=== PATIENT | female | born 1945 | race Caucasian/White ===

== ENCOUNTER → 2017-01-01 | Day surgery (SDC) | payer OTHER ==
[~2017-01-01] MED LIST: ACET-1256 PO; ASPCH81X PO; ATV/1 PO; BTP80 PO; CALC500C50 PO; HYDR12.55 PO; HYT/2 PO; LEVO75TA5 PO; LISI40TA PO; LPT20 PO; MULT-506 PO; NITR0.4S UT; PRM625 PV; PROPOFOL IV EMULSION 10 MG/ML 20 ML VIAL IV ONE; WARF5TAB90 PO
== END | disposition home or self-care (01) ==
LOC: C.CATH 06:30
PROVIDERS: ATTEND Internal Medicine Cardiovascular Disease
DX: R94.31 Abnormal electrocardiogram [ECG] [EKG] (principal); I48.0 Paroxysmal atrial fibrillation; I25.10 Atherosclerotic heart disease of native coronary artery without angina pectoris; I10 Essential (primary) hypertension; E78.5 Hyperlipidemia, unspecified; Z79.01 Long term (current) use of anticoagulants; Z79.82 Long term (current) use of aspirin; Z79.899 Other long term (current) drug therapy

== ENCOUNTER 2021-01-02 10:50 | Inpatient (IN) ==
[2021-01-02] MEDS ORDERED: METOPROLOL TARTRATE 1 MG/ML VIAL IV PRN (11:25)
--- NOTE | 2021-01-02 11:25 | Emergency Department Note ---
ED Visit Note This patient was seen in concert with Dr. Gates and we discussed and agreed upon the history, physical, assessment and plan. See attending's note for details. Resident Activity Tracking Resident Involvement: Resident Care Provided Care Provided: Adult ED
--- NOTE | 2021-01-02 11:34 | XRay Report ---
XR chest 1V portable HISTORY: 75 years-old Female Dysrhythmia acute atypical chest pain with atrial fibrillation and weak ness COMPARISON: 04/24/2016 TECHNIQUE: AP view of the chest FINDINGS: Mild cardiomegaly. Calcified plaque the thoracic aorta. Mild chronic interstitial coarsening. No pneu mothorax, pleural effusion, airspace consolidation or overt pulmonary edema. Degenerative changes of the shoulders and spine. IMPRESSION: No acute process. ACT 112: Negative or not required by law. The above report was generated using voice recognition software. It may contain grammatical, syntax o r spelling errors. Electronically signed by: Lucas Perez M.D. 01/02/2021 11:33 AM
[2021-01-02 11:41] LABS: Basophils # (auto) 0.04 K/uL (0-0.2); Basophils % (auto) 0.6 %; Eosinophils # (auto) 0.21 K/uL (0-0.5); Eosinophils % (auto) 2.9 %; Hematocrit (blood only) 43.3 % (37-47); Hemoglobin 14.8 g/dL (12.0-16.0); Immature Granulocytes # (auto) 0.02 K/uL (0.00-0.02); Immature Granulocytes % (auto) 0.3 %; Lymphocytes # (auto) 1.73 K/uL (1.2-3.4); Lymphocytes % (auto) 24.2 %; Mean Corpuscular Hemoglobin 30.6 pg (25-34); Mean Corpuscular Hgb Conc 34.2 g/dL (32-36); Mean Corpuscular Volume 89.6 fL (80-100); Mean Platelet Volume 10.6 fL (7.4-10.4); Monocytes # (auto) 0.68 K/uL (0.11-0.59); Monocytes % (auto) 9.5 %; Neutrophils # (auto) 4.46 K/uL (1.4-6.5); Neutrophils % (auto) 62.5 %; Platelet Count 235 K/uL (130-400); RDW Coefficient of Variation 13.7 % (11.5-14.5); RDW Standard Deviation 44.9 fL (36.4-46.3); Red Blood Count 4.83 M/uL (4.2-5.4); White Blood Count 7.14 K/uL (4.8-10.8)
[2021-01-02 11:52] LABS: INR 2.2 (0.9-1.1); Partial Thromboplastin Ratio 1.4; Partial Thromboplastin Time 36.2 Seconds (21.0-31.0); Prothrombin Time 21.1 Seconds (9.0-12.0)
[2021-01-02 11:57] LABS: Alanine Aminotransferase 19 U/L (12-78); Albumin Level 3.5 gm/dl (3.4-5.0); Aspartate Aminotransferase 16 U/L (15-37); BUN Creatinine Ratio 24.4 (10-20); Blood Urea Nitrogen 14 mg/dl (7-18); Calcium 9.2 mg/dl (8.5-10.1); Carbon Dioxide 29 mmol/L (21-32); Chloride 100 mmol/L (98-107); Creatinine Clr Calc Pharmacy 84.3 ml/min; Est GFR (African American) 104.2 ml/min; Est GFR (Non-African American) 89.9 ml/min; Glucose 108 mg/dl (70-99); Potassium 3.5 mmol/L (3.5-5.1); Sodium 134 mmol/L (136-145)
[2021-01-02 12:08] LABS: Alkaline Phosphatase 72 U/L (45-117); Bilirubin,Total 1.5 mg/dl (0.2-1); Globulin 3.6 gm/dl (2.5-4.0); Total Protein 7.1 gm/dl (6.4-8.2); Troponin I < 0.015 ng/ml (0-0.045)
[2021-01-02 12:30] LABS: T4 Free Thyroxine 1.29 ng/dl (0.8-1.6)
[2021-01-02] MEDS ORDERED: STAT IV Infusion **Titration per Protocol STA (12:32)
[2021-01-02] MEDS ORDERED: dilTIAZem HCl 5 MG/ML 5 ML VIAL IV STA (12:34)
[2021-01-02] MEDS ORDERED: SODIUM CHLORIDE 0.9% 1000ML 1,000 ML IV SCH (12:45)
--- NOTE | 2021-01-02 12:45 | Emergency Department Note ---
Impression & Plan Atrial fibrillation with rapid ventricular response, Palpitations ED Provider Note Provider: Javier Gates MD DATE OF SERVICE: 01/02/2021 CHIEF COMPLAINT: afib HISTORY OF PRESENT ILLNESS: Patient is a 75-year-old female past medical history of thyroiditis, GERD, atrial fibrillation on sotalol and Coumadin presenting here today referred from the outpatient cardiology clinic for A. fib. Patient has a history but onset last night around 4 AM after using the bathroom. Patient denies significant chest pain but reports shortness of breath with exertion and palpitation sensation. Denies any lightheadedness or syncope. Denies any trauma. Patient does states she is recovered from an rash on her arm with some prednisone and doxycycline last week and had little diarrhea. This is resolved. Denies any significant abdominal pain. Patient did have breakfast this morning around 8 AM. Patient has a history of electrocardioversion in the past and follows with Dr. Humphrey. REVIEW OF SYSTEMS: A total of 10 review of systems was obtained and negative except as stated above in the HPI. PAST MEDICAL HISTORY: As noted above MEDICATIONS: Reviewed home medication list includes sotalol as well as warfarin SOCIAL HISTORY: lives at home PHYSICAL EXAM: GENERAL: alert and oriented in no acute distress on stretcher Head: normocephalic and atraumatic EYES: No injection, discharge or icterus. NECK: Trachea midline. LUNGS: Airway patent. No retractions. Breath sounds clear HEART: Irregularly irregular rate and rhythm. No chest wall tenderness ABDOMEN: Soft and non-tender, without guarding or rebound. SKIN: Acyanotic, warm, dry, without rashes EXTREMITIES: Without swelling, tenderness or deformity NEUROLOGICAL: No focal deficits. No aphasia. No facial droop or slurred speech. EK bpm atrial fibrillation with rapid ventricular response. Some lateral ST flattening noted without acute ST segment elevation. QTc 487. CONTINUOUS CARDIAC MONITORING: was ordered and showed a heart rate of 130s-70s bpm in atrial fibrillation Patient's laboratory studies and imaging reviewed. Differential includes Premature contractions, electrolyte abnormality, cardiac dysrhythmia, thyroid dysfunction, pulmonary embolism, infection, gastrointestinal, as well as other pathologies. IMPRESSION/MEDICAL DECISION MAKING: History of A. fib maintained on sotalol and Coumadin. Complains of some shortness of breath mainly with exertion and palpitation sensation. EKG question some lateral ST depression but negative troponin here. Denies chest pain. Therapeutic anticoagulation. Question if possibly due to recent steroids and antibiotics with some diarrhea over the weekend for a rash in her arm contributed but just started overnight. Given some Toprol here 1 dose without significant rate control improvement but some decrease in her blood pressure. Discussed with Dr. Toro of cardiology recommended some IV fluids and starting a diltiazem drip after bolus. Inpatient hospitalist team was contacted for further care of the patient with A. fib RVR will need medical optimization and when able to tolerate sedation possible electrical cardioversion. No severe electrolyte abnormalities at this time noted such as hypokalemia or hypomagnesemia may be provoking. Patient denies acute infectious symptoms. Covid test was negative. Patient's heart rate improved but maintained atrial fibrillation. DIAGNOSIS: Atrial fibrillation with rapid ventricular response DISPOSITION: Hospitalist will evaluate patient was in agreement with the plan. Critical Care I have personally spent 31 minutes of critical care time in the direct management of this patient. This includes bedside care, interpretation of diagnostic studies, and testing, discussion with consultants, patient, and family members, and other required patient management activities. These 31 minutes is in excess of all separately billable procedures. Past Med/Surg History Medical History Afib Coronary artery disease Dyslipidemia Hypertension Hypothyroid Osteoporosis Social History Smoking Status: Never smoker Hx Alcohol Use: No Hx Substance Use: No Beliefs That Will Affect Care: None Current Living Situation: Spouse Feels Safe at Home: Yes Assistive Devices: None Allergies Allergies Allergy/AdvReac Type Severity Reaction Status Date / Time No Known Allergies Allergy Verified 03/27/20 07:01 Home Meds Home Medications Medication Instructions Recorded Confirmed Multivitamin 1 tab PO DAILY #0 09/15/08 01/02/21 ASPIRIN (ASPIRIN CHEWABLE) 81 mg PO HS #0 tab 04/23/12 01/02/21 CALCIUM CARBONATE (ANTACID) (TUMS) 500 mg PO PRN #0 04/28/13 01/02/21 LISINOPRIL (ZESTRIL) 40 mg PO QAM #0 tab 04/28/13 01/02/21 NITROGLYCERIN (NITROSTAT) 0.4 mg UT PRN #0 btl 04/28/13 01/02/21 LORAZEPAM (ATIVAN) 1 mg PO BID PRN #0 tab 04/24/16 01/02/21 Acetaminophen (Tylenol) 2 tab PO Q6 PRN 2 Days #20 tab 01/01/17 01/02/21 HYDROCHLOROTHIAZIDE 1 tab PO DAILY 30 Days #0 tab 01/01/17 01/02/21 WARFARIN SODIUM (COUMADIN) 1 tab PO DAILY all other days 90 01/01/17 01/02/21 Days #0 tab Sotalol HCl 120 mg PO BID 03/27/20 01/02/21 amlodipine 2.5 mg DAILY 03/27/20 01/02/21 diclofenac sodium 2 g TOPICAL QID 03/27/20 01/02/21 isosorbide mononitrate 30 mg PO DAILY 03/27/20 01/02/21 levothyroxine 88 mcg PO DAILY 03/27/20 01/02/21 rosuvastatin 5 mg PO Q OTHER DAY 03/27/20 01/02/21 triamcinolone acetonide 1 applic TOPICAL BID 03/27/20 01/02/21 Results & Data (ED) Vital Signs Vital Signs - 24 hr 01/02/21 10:54 01/02/21 11:10 01/02/21 11:30 Temperature 36.4 C L Temperature Source Oral Pulse Rate 130 H 137 H 130 H Pulse Rate [Right] Pulse Rate from SpO2 Sensor Pulse Rhythm [Right] Pulse Strength [Right] Respiratory Rate 20 17 15 Respiratory Effort / Characteristics Non-Labored Respiratory Depth Normal Respiratory Pattern Blood Pressure 138/63 Blood Pressure [Left Arm] Blood Pressure Mean 88 Blood Pressure Mean [Left Arm] Blood Pressure Position [Left Arm] Pulse Oximetry 98 Oxygen Delivery Method Room Air Sepsis Recent Fever Within 48 Hours No Sepsis New/Unexplained Change in Mental Status N/A Sepsis Action Taken by Nursing No Action Required 01/02/21 11:44 01/02/21 11:53 01/02/21 12:00 Temperature Temperature Source Pulse Rate 131 H 123 H Pulse Rate [Right] Pulse Rate from SpO2 Sensor 116 H Pulse Rhythm [Right] Pulse Strength [Right] Respiratory Rate 19 Respiratory Effort / Characteristics Respiratory Depth Respiratory Pattern Blood Pressure 102/72 98/81 L Blood Pressure [Left Arm] Blood Pressure Mean 86 Blood Pressure Mean [Left Arm] Blood Pressure Position [Left Arm] Pulse Oximetry 96 Oxygen Delivery Method Room Air Sepsis Recent Fever Within 48 Hours Sepsis New/Unexplained Change in Mental Status Sepsis Action Taken by Nursing 01/02/21 12:30 01/02/21 12:45 01/02/21 13:00 Temperature Temperature Source Pulse Rate 114 H 80 Pulse Rate [Right] 109 H Pulse Rate from SpO2 Sensor 108 H 83 Pulse Rhythm [Right] Regular Pulse Strength [Right] Normal Respiratory Rate 21 18 22 Respiratory Effort / Characteristics Non-Labored Respiratory Depth Normal Respiratory Pattern Regular Blood Pressure 90/69 L 105/65 Blood Pressure [Left Arm] 105/75 Blood Pressure Mean 76 78 Blood Pressure Mean [Left Arm] 85 Blood Pressure Position [Left Arm] Lying Pulse Oximetry 96 97 94 Oxygen Delivery Method Room Air Sepsis Recent Fever Within 48 Hours Sepsis New/Unexplained Change in Mental Status Sepsis Action Taken by Nursing 01/02/21 13:30 01/02/21 14:00 01/02/21 14:08 Temperature Temperature Source Pulse Rate 80 77 Pulse Rate [Right] Pulse Rate from SpO2 Sensor 81 80 Pulse Rhythm [Right] Pulse Strength [Right] Respiratory Rate 17 17 Respiratory Effort / Characteristics Respiratory Depth Respiratory Pattern Blood Pressure 121/74 127/88 Blood Pressure [Left Arm] Blood Pressure Mean 89 101 Blood Pressure Mean [Left Arm] Blood Pressure Position [Left Arm] Pulse Oximetry 97 98 Oxygen Delivery Method Room Air Sepsis Recent Fever Within 48 Hours Sepsis New/Unexplained Change in Mental Status Sepsis Action Taken by Nursing Laboratory Data Result diagrams: 01/02/21 11:35 01/02/21 11:35 Lab Results 01/02/21 01/02/21 01/02/21 Range/Units 11:35 11:35 11:35 WBC 7.14 (4.8-10.8) K/uL RBC 4.83 (4.2-5.4) M/uL Hgb 14.8 (12.0-16.0) g/dL Hct 43.3 (37-47) % MCV 89.6 (80-100) fL MCH 30.6 (25-34) pg MCHC 34.2 (32-36) g/dL RDW Std Deviation 44.9 (36.4-46.3) fL RDW Coeff of Henri 13.7 (11.5-14.5) % Plt Count 235 (130-400) K/uL MPV 10.6 H (7.4-10.4) fL Immature Gran % (Auto) 0.3 % Neut % (Auto) 62.5 % Lymph % (Auto) 24.2 % [place] % (Auto) 9.5 % Eos % (Auto) 2.9 % Baso % (Auto) 0.6 % Neut # (Auto) 4.46 (1.4-6.5) K/uL Lymph # (Auto) 1.73 (1.2-3.4) K/uL [place] # (Auto) 0.68 H (0.11-0.59) K/uL Eos # (Auto) 0.21 (0-0.5) K/uL Baso # (Auto) 0.04 (0-0.2) K/uL Immature Gran # (Auto) 0.02 (0.00-0.02) K/uL PT 21.1 H (9.0-12.0) Seconds INR 2.2 H (0.9-1.1) APTT 36.2 H (21.0-31.0) Seconds PTT Ratio 1.4 Sodium 134 L (136-145) mmol/L Potassium 3.5 (3.5-5.1) mmol/L Chloride 100 (98-107) mmol/L Carbon Dioxide 29 (21-32) mmol/L Anion Gap 5.0 (3-11) BUN 14 (7-18) mg/dl Creatinine 0.56 L (0.6-1.2) mg/dl Est Cr Clr Drug Dosing 84.3 ml/min Est GFR ( Amer) 104.2 ml/min Est GFR (Non-Af Amer) 89.9 ml/min BUN/Creatinine Ratio 24.4 H (10-20) Glucose 108 H (70-99) mg/dl Calcium 9.2 (8.5-10.1) mg/dl Magnesium 2.0 (1.8-2.4) mg/dl Total Bilirubin 1.5 H (0.2-1) mg/dl AST 16 (15-37) U/L ALT 19 (12-78) U/L Alkaline Phosphatase 72 (45-117) U/L Troponin I < 0.015 (0-0.045) ng/ml Total Protein 7.1 (6.4-8.2) gm/dl Albumin 3.5 (3.4-5.0) gm/dl Globulin 3.6 (2.5-4.0) gm/dl Albumin/Globulin Ratio 1.0 (0.9-2) TSH 5.760 H (0.300-4.500) uIu/ml Free T4 1.29 (0.8-1.6) ng/dl COVID-19 Eval Order SARS-CoV-2 (PCR) (Negative) 01/02/21 01/02/21 Range/Units 12:06 12:06 WBC (4.8-10.8) K/uL RBC (4.2-5.4) M/uL Hgb (12.0-16.0) g/dL Hct (37-47) % MCV (80-100) fL MCH (25-34) pg MCHC (32-36) g/dL RDW Std Deviation (36.4-46.3) fL RDW Coeff of Henri (11.5-14.5) % Plt Count (130-400) K/uL MPV (7.4-10.4) fL Immature Gran % (Auto) % Neut % (Auto) % Lymph % (Auto) % [place] % (Auto) % Eos % (Auto) % Baso % (Auto) % Neut # (Auto) (1.4-6.5) K/uL Lymph # (Auto) (1.2-3.4) K/uL [place] # (Auto) (0.11-0.59) K/uL Eos # (Auto) (0-0.5) K/uL Baso # (Auto) (0-0.2) K/uL Immature Gran # (Auto) (0.00-0.02) K/uL PT (9.0-12.0) Seconds INR (0.9-1.1) APTT (21.0-31.0) Seconds PTT Ratio Sodium (136-145) mmol/L Potassium (3.5-5.1) mmol/L Chloride (98-107) mmol/L Carbon Dioxide (21-32) mmol/L Anion Gap (3-11) BUN (7-18) mg/dl Creatinine (0.6-1.2) mg/dl Est Cr Clr Drug Dosing ml/min Est GFR ( Amer) ml/min Est GFR (Non-Af Amer) ml/min BUN/Creatinine Ratio (10-20) Glucose (70-99) mg/dl Calcium (8.5-10.1) mg/dl Magnesium (1.8-2.4) mg/dl Total Bilirubin (0.2-1) mg/dl AST (15-37) U/L ALT (12-78) U/L Alkaline Phosphatase (45-117) U/L Troponin I (0-0.045) ng/ml Total Protein (6.4-8.2) gm/dl Albumin (3.4-5.0) gm/dl Globulin (2.5-4.0) gm/dl Albumin/Globulin Ratio (0.9-2) TSH (0.300-4.500) uIu/ml Free T4 (0.8-1.6) ng/dl COVID-19 Eval Order Covid19 at [facility] SARS-CoV-2 (PCR) NEGATIVE (Negative) Administered Medications Diltiazem HCl 125 mg/ Dextrose 125 mls @ 5 mls/hr IV .Q24H KRIS; Protocol Stop: 02/01/21 12:44 Last Admin: 01/02/21 12:46 Dose: 5 mg/hr, 5 mls/hr Documented by: [id number] Cosigned by: [id number] Sodium Chloride (Nss 1000ml) 1,000 mls @ 125 mls/hr IV .Q8H KRIS Stop: 02/01/21 12:44 Last Admin: 01/02/21 12:47 Dose: 125 mls/hr Documented by: [id number] Metoprolol Tartrate (Metoprolol Tartrate 1 Mg/Ml Vial) 5 mg IV Q5M PRN PRN Reason: Tachycardia Last Admin: 01/02/21 11:44 Dose: 5 mg Documented by: [id number] Discontinued Medications Diltiazem HCl (Diltiazem Hcl 5 Mg/Ml 5 Ml Vial) 10 mg IV NOW STA Stop: 01/02/21 12:35 Last Admin: 01/02/21 12:46 Dose: 10 mg Documented by: [id number] Cosigned by: [id number] Miscellaneous (Stat Iv Infusion Titration Per Protocol) 1 ea N/A NOW STA Stop: 01/02/21 12:33 Last Admin: 01/02/21 12:48 Dose: Not Given Documented by: [id number] Potassium Chloride (Potassium Chloride Crtab 20 Meq Tabcr) 40 meq PO NOW STA Stop: 01/02/21 13:07 Last Admin: 01/02/21 13:32 Dose: 40 meq Documented by: [id number] Imaging Data Radiologist's Impression: Chest X-Ray 01/02/21 11:16 XR chest 1V portable HISTORY: 75 years-old Female Dysrhythmia acute atypical chest pain with atrial fibrillation and weakness COMPARISON: 04/24/2016 TECHNIQUE: AP view of the chest FINDINGS: Mild cardiomegaly. Calcified plaque the thoracic aorta. Mild chronic interstitial coarsening. No pneumothorax, pleural effusion, airspace consolidation or overt pulmonary edema. Degenerative changes of the shoulders and spine. IMPRESSION: No acute process. ACT 112: Negative or not required by law. The above report was generated using voice recognition software. It may contain grammatical, syntax or spelling errors. Electronically signed by: Lucas Perez M.D. 01/02/2021 11:33 AM Discharge Plan Visit Data Chief Complaint: Arrhythmia/Palpitations Stated Complaint: AFIB ED Provider: Javier Gates ED Midlevel Provider: Court Iqbal Discharge Problem: Atrial fibrillation with rapid ventricular response, Palpitations Patient Disposition: Being Evaluated by Hospitalist Discharge Instructions Interventions: ED Discharge Assessment Last Done: 01/02/21 14:08 Forms Stand Alone Forms: [employer] [facility] [employer] Prescriptions Prescriptions: No Action Multivitamin tablet 1 tab PO DAILY Qty: 0 RF: 0 ASPIRIN (ASPIRIN CHEWABLE) 81 MG CHEWABLE TAB 81 mg PO HS Qty: 0 RF: 0 CALCIUM CARBONATE (ANTACID) (TUMS) 500 MG CHW 500 mg PO PRN Qty: 0 RF: 0 LISINOPRIL (ZESTRIL) 40 MG tablet 40 mg PO QAM Qty: 0 RF: 0 NITROGLYCERIN (NITROSTAT) 0.4 MG SUB 0.4 mg UT PRN Qty: 0 RF: 0 LORAZEPAM (ATIVAN) 1 MG tablet 1 mg PO BID PRN (Reason: anxiety) Qty: 0 RF: 0 Acetaminophen (Tylenol) 500 MG tablet 2 tab PO Q6 PRN (Reason: PRN) 2 Days Qty: 20 RF: 3 HYDROCHLOROTHIAZIDE 12.5 MG tablet 1 tab PO DAILY 30 Days Qty: 0 RF: 5 WARFARIN SODIUM (COUMADIN) 5 MG tablet 1 tab PO DAILY all other days 90 Days Qty: 0 RF: 1 isosorbide mononitrate 30 mg Tablet Extended Release 24 Hr 30 mg PO DAILY RF: 0 amlodipine 2.5 mg Tablet 2.5 mg DAILY RF: 0 triamcinolone acetonide 0.1 % Cream 1 applic TOPICAL BID RF: 0 levothyroxine 88 mcg Tablet 88 mcg PO DAILY RF: 0 rosuvastatin 5 mg Tablet 5 mg PO Q OTHER DAY RF: 0 diclofenac sodium 1 % Gel 2 g TOPICAL QID RF: 0 Sotalol HCl 80 MG tablet 120 mg PO BID RF: 0 Referrals Referrals: Leslie Barrow DO [Primary Care Provider] -
[2021-01-02] MEDS: dilTIAZem HCL 125 MG in DEXTROSE 5% 100 ML IV SCH (12:46)
--- NOTE | 2021-01-02 12:49 | History & Physical Report ---
Date of Service January 02, 2021 Assessment & Plan (1) Atrial fibrillation with rapid ventricular response: -Admit to PCU -Found to be in A. fib RVR at outpatient cardiology clinic with heart rate in the 140s and sent to the ER -Started on Cardizem drip after 1 dose of IV metoprolol given in the ER without response, continue -NSS at 125 mL/h, make n.p.o. for now in case pt needs cardioversion, last p.o. intake was breakfast. - has previously been cardioverted twice. See HPI. -Consult cardiology-appreciate recommendations -EKG reviewed, obtain daily EKG -Anticoagulated on Coumadin, INR = 2.2, takes Coumadin 5 mg PO Wed// and 2.5 mg on all other days. -Continue sotalol 80 mg BID with holding parameters, Imdur 30 mg daily, baby aspirin daily, lisinopril 40 mg daily and hold HCTZ. (2) Coronary artery disease: - hx of such, continue medications as above - Cardiology consult (3) Hypertension: - Blood pressure 105/65 while on the Cardizem drip, monitor, medications as above (4) Dyslipidemia: - Continue rosuvastatin 5 mg daily (5) Hypothyroid: - Continue levothyroxine 88 mcg daily, missed morning dose - TSH = 5.760, free T4 = 1.29 (6) Osteoporosis: - History of such, continue Fosamax 70 mg tablet on Sundays (7) GERD (gastroesophageal reflux disease): -Stable, not on PPI or H2 [place] DVT PPx: - teds, Coumadin as above CODE: Full code Dispo: From home, likely to remain in the hospital x 1-2 days History of Present Illness Primary Care Provider: Leslie Barrow DO This is a 75 yo F with PMhx of paroxysmal A. 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 Pt presents to the ER today secondary to chest pain which she developed around 4 AM. She was seen by cardiology earlier today and upon arrival to the clinic was found to be tachycardic with EKG showing A. fib with RVR, heart rate in the 130s. Her complaints included flutter, palpitations, and shortness of breath with minimal exertion today. She has been taking sotalol as prescribed and is compliant with her other medications. INR is 2.2, as she is anticoagulated on Coumadin. On 12/17/20, INR was supratherapeutic 4.4, so had held a few doses. In the ER, diltiazem drip was started, and her heart rate has come down since. Heart rate is irregular, in the low 90s at bedside. is present with her and supports the history. She denies any chest pain, or shortness of breath at rest currently. Earlier today she ate breakfast, but nothing since then. Pt was hoping that she would not have to stay in the hospital, but is agreeable to staying overnight. Allergies Allergy/AdvReac Type Severity Reaction Status Date / Time No Known Allergies Allergy Verified 03/27/20 07:01 Home Medications Medication Instructions Recorded Confirmed Type Multivitamin 1 tab PO DAILY #0 09/15/08 01/02/21 History ASPIRIN (ASPIRIN CHEWABLE) 81 mg PO HS #0 tab 04/23/12 01/02/21 History CALCIUM CARBONATE (ANTACID) (TUMS) 500 mg PO PRN #0 04/28/13 01/02/21 History LISINOPRIL (ZESTRIL) 40 mg PO QAM #0 tab 04/28/13 01/02/21 History NITROGLYCERIN (NITROSTAT) 0.4 mg UT PRN #0 btl 04/28/13 01/02/21 History LORAZEPAM (ATIVAN) 1 mg PO BID PRN #0 tab 04/24/16 01/02/21 History Acetaminophen (Tylenol) 2 tab PO Q6 PRN 2 Days #20 tab 01/01/17 01/02/21 History HYDROCHLOROTHIAZIDE 1 tab PO DAILY 30 Days #0 tab 01/01/17 01/02/21 History WARFARIN SODIUM (COUMADIN) 1 tab PO DAILY all other days 90 01/01/17 01/02/21 History Days #0 tab Sotalol HCl 120 mg PO BID 03/27/20 01/02/21 History amlodipine 2.5 mg DAILY 03/27/20 01/02/21 History diclofenac sodium 2 g TOPICAL QID 03/27/20 01/02/21 History isosorbide mononitrate 30 mg PO DAILY 03/27/20 01/02/21 History levothyroxine 88 mcg PO DAILY 03/27/20 01/02/21 History rosuvastatin 5 mg PO Q OTHER DAY 03/27/20 01/02/21 History triamcinolone acetonide 1 applic TOPICAL BID 03/27/20 01/02/21 History Past Med/Surg History Medical History Afib Coronary artery disease Dyslipidemia Hypertension Hypothyroid Osteoporosis Social History Smoking Status: Never smoker Hx Alcohol Use: No Hx Substance Use: No Beliefs That Will Affect Care: None Current Living Situation: Spouse Feels Safe at Home: Yes Assistive Devices: None Review of Systems Review of Systems: Constitutional: No fever, sweats or chills Eyes: No diplopia, no worsening or blurred vision ENT: normal hearing, no trouble swallowing Respiratory: No cough, sputum, dyspnea at rest or on exertion Cardiovascular: As per HPI, currently no chest pain Abdomen: No pain, nausea, vomiting, diarrhea or constipation Musculoskeletal: Chronic bilateral knee joint pain, no calf pain, no swelling Neurologic: No weakness, numbness/tingling, or balance problems Psychiatric: No anxiety or depression Skin: No rash or itch Physical Exam Physical Exam: General: awake, alert, no apparent distress Head: Normocephalic, atraumatic ENT: PERRL, EOMI, no pharyngeal exudate, mucous membranes moist Chest: Clear to auscultation, on room air, no adventitious breath sounds Cardiac: Regularly irregular with heart rate in the 90s, no JVD, + peripheral pulses, good capillary refill Abdominal: NABS x 4 quadrants, soft, nondistended, nontender to palpation, no rebound or guarding Extremities: Normal inspection, no peripheral edema or erythema, calfs nontender to palpation Psych: Normal mood and affect Neuro: AAO x 3, strength intact bilaterally and rated 5/5, no motor deficits, speech is clear, no peripheral sensory deficits Results & Data Results & Data ([facility]) Vital Signs (Past 12 Hours) Vital Signs Temp Pulse Resp BP Pulse Ox 01/02/21 12:00 123 H 19 98/81 L 96 01/02/21 11:44 131 H 102/72 01/02/21 11:30 130 H 15 01/02/21 11:10 137 H 17 01/02/21 10:54 36.4 C L 130 H 20 138/63 98 Diagnostic Findings Chest X-Ray 01/02/21 11:16 XR chest 1V portable HISTORY: 75 years-old Female Dysrhythmia acute atypical chest pain with atrial fibrillation and weakness COMPARISON: 04/24/2016 TECHNIQUE: AP view of the chest FINDINGS: Mild cardiomegaly. Calcified plaque the thoracic aorta. Mild chronic interstitial coarsening. No pneumothorax, pleural effusion, airspace consolidation or overt pulmonary edema. Degenerative changes of the shoulders and spine. IMPRESSION: No acute process. ACT 112: Negative or not required by law. The above report was generated using voice recognition software. It may contain grammatical, syntax or spelling errors. Electronically signed by: Lucas Perez M.D. 01/02/2021 11:33 AM ECG Rhythm: atrial fibrillation Additional Comments: 02-JAN-2021 11:05:37 [facility]-EDSTAT ROUTINE RETRIEVAL Atrial fibrillation with rapid ventricular response Septal infarct (cited on or before 25-APR-2016) ST & T wave abnormality, consider inferolateral ischemia Abnormal ECG When compared with ECG of 27-MAR-2020 07:32, Atrial fibrillation has replaced Sinus rhythm Vent. rate has increased BY 73 BPM T wave inversion no longer evident in Anterior leads Inverted T waves have replaced nonspecific T wave abnormality in Lateral leads Vent. rate 128 BPM NH interval * ms QRS duration 94 ms QT/QTc 334/487 ms Code Status & VTE Plan Code Status Full code-discussed with patient bedside Supervising Physician Co-Signing Physician Notes Patient is a 75-year-old female with history of paroxysmal atrial fibrillation on chronic anticoagulation with Coumadin, coronary artery disease, dyslipidemia, hypothyroidism and other medical problems presents with history of palpitations associated with chest discomfort and transient dyspnea which started at around 4 AM this morning. Patient states that she was diagnosed to have upper extremity cellulitis and finished a course of doxycycline and prednisone 3 days ago. She admits to having diarrhea since 1 week duration. She takes her medications regularly, INR is in therapeutic range. She denies any nausea, vomiting, fever, chills. Currently she feels palpitations, chest discomfort resolved. On exam patient is moderately built and nourished, no apparent distress, normocephalic atraumatic, EOMI, lungs-normal breath sounds, clear to auscultation, irregularly irregular rhythm,+ murmur, trace pedal edema, abdomen soft, nontender, normal bowel sounds, alert, awake, oriented, grossly no focal deficits. Patient is admitted for management of A. fib RVR. Will replace potassium to keep levels around 4.0. She was started on Cardizem drip while in the ER, will continue. Also continue sotalol for now. INR in therapeutic range 2.2. Continue Coumadin for anticoagulation. Mildly elevated TSH noted likely secondary from recent infection. Free T4 within normal limits. Will likely does not need any adjustment of levothyroxine currently. Will consult cardiology for possible cardioversion. Will check stool studies to rule out C. difficile. Agree with gentle IV fluids. Will hold HCTZ. I personally reviewed the record. Patient is interviewed and examined at bedside. Patient's care is coordinated with Katey Penn PA-C. Please refer to the documentation above for details of patient's presentation and for discussion of other issues.
[2021-01-02] MEDS ORDERED: POTASSIUM CHLORIDE CRTAB 20 MEQ TABCR PO STA (13:06)
--- NOTE | 2021-01-02 14:03 | Cardiology Consultation ---
Date of Consultation January 02, 2021 Assessment & Plan (1) Atrial fibrillation with rapid ventricular response: Patient presented to the cardiology office today with complaints of palpitations starting around 4 AM. Patient was found to be in A. fib RVR around 130 bpm. Patient was symptomatic with complaints of shortness of breath. No chest pain. Recently treated with IV antibiotics and steroids which has been resulted in diarrhea. Serum creatinine stable, potassium low normal at 3.5. Sodium mildly low at 134. patient maintained on sotalol with a stable QTC. INR has been therapeutic. Metoprolol IV dropped blood pressure. Maintained on diltiazem drip at 5ml/hr, with a 10 mg bolus preceding it. Heart rates are much better controlled and patient is currently asymptomatic. 1. Continue sotalol 120 mg twice daily 2. Continue Coumadin INR goal between 23 3. Patient should remain n.p.o. at midnight for possible cardioversion in the morning. 4. Patient was repleted with 40 mEq of potassium chloride, repeat BMP in the morning (2) CAD (coronary artery disease): Mild nonobstructive disease per cath in 2011. Stable, no angina symptoms. (3) Hypertension: History of labile hypertension. Did have an episode of hypotension after giving metoprolol. Would hold off on restarting home blood pressure medications at this time. Patient is normally maintained on lisinopril 40 mg daily, Norvasc 2.5 mg daily, hydrochlorothiazide 25 mg daily, Imdur 30 mg daily. 1. Should patient start to become hypertensive would recommend restarting lisinopril first. (4) Aortic stenosis: (5) Aortic regurgitation: Mixed aortic valve disease with mild aortic stenosis and mild aortic insufficiency per echo in February 2020. 1.Repeat echo tomorrow Supervising Physician Co-Signing Physician Notes Pt seen and examined, agree with assessment and recommendations by Sheila STONE. Pt presents with symptomatic afib with rvr. Recent course of treatment with abx and steroids for cellulits, likely the nitus for recurrent afib. Will rate controll with cardizem gtt for now and cont sotalol. Hopefully will convert to sinus with rate control. If not will plan on cardioversion in the AM. INR therapeutic back to September 2020. Pt in agreement with plan. History of Present Illness Reason for Consultation: Afib RVR Requesting Physician: [facility] hospitalist History of Present Illness Per last office note 01/02/2021 Chief Complaint: Palpitations; SOB; History of atrial fibrillation SUBJECTIVE: Randall Laura is a 75 year old female who presents today for an acute cardiology visit with her . Last clinic evaluation approximately [address] Humphrey. Patient called the cardiology office this morning with complaints of palpitations and shortness of breath starting around 4:00 a.m.. Appointment was scheduled. Upon arrival, her heart rate/Pulse was found to be tachycardic. EKG completed and demonstrated recurrent atrial fibrillation with rapid ventricular response around 130 beats per minute. In the office, patient reports shortness of breath with minimal exertion such as ambulation down the hallway today. She feels the need to take a deep breath continuously. No chest pain reported. No dizziness or lightheadedness. Chronic mild lower extremity edema unchanged. No fever, cough, chills. She was recently treated for unusual rash on her left arm with steroids and antibiotics, thought to be a possible insect bite versus poison. Symptoms have improved. 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 She reports compliance with all meds. Last INR in November was therapeutic. Taking sotalol as prescribed. BP controlled. Today upon entrance into the room patient was feeling well and offers no complaints. She was resting comfortably in the stretcher. at bedside. Notes that she recently finished up a course of antibiotics and steroids for an arm cellulitis. Over the last week she has been having a great deal of diarrhea. States that she no longer has any fluttering in her chest. Denies any exertional chest pain or shortness of breath. Upon presentation to the emergency department patient was given a dose of metoprolol IV which dropped her blood pressure to 90/60. Patient was then started on a diltiazem drip at 5 ml/h with a 10 mg bolus to start, blood pressure improved, on assessment but patient's blood pressure was 127/88. No dizziness, syncope or near syncope. No orthopnea, PND, or increased lower extremity edema. No fever, chills, cough, hematochezia, melena, or hemoptysis. geological scout reviewed. Patient remains in atrial fibrillation in the 70s. EKG on admission to the emergency department showed A. fib with RVR, 128 bpm and a QTC of 487 ms. History includes: 1.Paroxysmal atrial fibrillation controlled in sinus rhythm with sotalol. 2.Synchronized cardioversion December 2016, March 27, 2020 3.Moderate coronary Atherosclerosis by cardiac catheterization 2011, nonobstructive. 4.Labile hypertension. 5. Hyperlipidemia on therapy 6. Mixed aortic valve disease with mild aortic stenosis mild aortic insufficiency Allergies Allergy/AdvReac Type Severity Reaction Status Date / Time No Known Allergies Allergy Verified 03/27/20 07:01 Home Medications Medication Instructions Recorded Confirmed Type Multivitamin 1 tab PO DAILY #0 09/15/08 01/02/21 History ASPIRIN (ASPIRIN CHEWABLE) 81 mg PO HS #0 tab 04/23/12 01/02/21 History CALCIUM CARBONATE (ANTACID) (TUMS) 500 mg PO PRN #0 04/28/13 01/02/21 History LISINOPRIL (ZESTRIL) 40 mg PO QAM #0 tab 04/28/13 01/02/21 History NITROGLYCERIN (NITROSTAT) 0.4 mg UT PRN #0 btl 04/28/13 01/02/21 History LORAZEPAM (ATIVAN) 1 mg PO BID PRN #0 tab 04/24/16 01/02/21 History Acetaminophen (Tylenol) 2 tab PO Q6 PRN 2 Days #20 tab 01/01/17 01/02/21 History HYDROCHLOROTHIAZIDE 1 tab PO DAILY 30 Days #0 tab 01/01/17 01/02/21 History WARFARIN SODIUM (COUMADIN) 1 tab PO DAILY all other days 90 01/01/17 01/02/21 History Days #0 tab Sotalol HCl 120 mg PO BID 03/27/20 01/02/21 History amlodipine 2.5 mg tablet 2.5 mg DAILY 03/27/20 01/02/21 History diclofenac sodium 1 % topical gel 2 g TOPICAL QID 03/27/20 01/02/21 History isosorbide mononitrate 30 mg 30 mg PO DAILY 03/27/20 01/02/21 History tablet,extended release 24 hr levothyroxine 88 mcg tablet 88 mcg PO DAILY 03/27/20 01/02/21 History rosuvastatin 5 mg tablet 5 mg PO Q OTHER DAY 03/27/20 01/02/21 History triamcinolone acetonide 0.1 % 1 applic TOPICAL BID 03/27/20 01/02/21 History topical cream potassium chloride 20 mEq 20 meq PO DAILY #30 tab 01/03/21 Rx tablet,extended release Patient History Medical History Afib Coronary artery disease Dyslipidemia Hypertension Hypothyroid Osteoporosis Social History Smoking Status: Never smoker Hx Alcohol Use: No Hx Substance Use: No Preferred Language: Andorran Communication Ability: Effective Paid Search Manager Required: No Beliefs That Will Affect Care: None marital status: Current Living Situation: Spouse How many Children do You have: 4 Other Information That Helps Us Care for You: No Feels Safe at Home: Yes Safety Concerns: Feels Safe At This Time Assistive Devices: None Review of Systems Review of Systems: All systems reviewed & are unremarkable except as noted in HPI & below Physical Exam Physical Exam: General: no acute distress and stated age Head: normocephalic, no masses, lesions, tenderness or abnormalities Eyes: conjunctiva are pink and non-injected, sclera clear Throat: clear Nares: without discharge Neck: supple, no adenopathy, no bruits, normal jugular venous pulse, no hepatojugular reflux, no carotid bruits Chest: normal shape and normal respiratory effort Lungs: clear to auscultation and percussion Cardiac Exam: Irregularly irregular, tachycardic, grade 1/6 systolic murmur no diastolic murmur no S3 gallop normal S-1, normal S-2 Pulses: 2(+) throughout Abdomen: abdomen soft, non-tender, no abnormal masses, no hepatosplenomegaly, no abdominal bruit, no femoral bruit Musculoskeletal: no gait disturbance, no joint inflammation, no deforming arthritis Extremities: Trivial edema, varicosities noted, no cyanosis, pulses intact 2+/4 Neuro: grossly normal exam Results & Data ([facility]) Vital Signs (Past 12 Hours) Vital Signs Temp Pulse Pulse Resp BP BP Pulse Ox 01/02/21 13:30 80 17 121/74 97 01/02/21 13:00 80 22 105/65 94 01/02/21 12:45 109 H 18 105/75 97 01/02/21 12:30 114 H 21 90/69 L 96 01/02/21 12:00 123 H 19 98/81 L 96 01/02/21 11:44 131 H 102/72 01/02/21 11:30 130 H 15 01/02/21 11:10 137 H 17 01/02/21 10:54 36.4 C L 130 H 20 138/63 98 EKG on admission to the emergency department 01/02/2021 Aubree wild with RVR, 128 bpm QTc 487 EKG performed at 01/02/2021 Atrial fibrillation with rapid ventricular response Marked ST abnormality, possible inferior subendocardial injury Abnormal ECG When compared with ECG of 17-APR-2020 09:43, Atrial fibrillation has replaced Sinus rhythm Vent. rate has increased BY [address] now depressed in Inferior leads T wave inversion no longer evident in Anterior leads Results for RANDALL LAURA ( ) as of 01/02/2021 10:08 Ref. Range 08/27/2020 09:14 10/22/2020 08:52 12/17/2020 09:09 Fingerstick INR Latest Units: INR 2.4 2.1 4.2 Echo 02/2020 at [facility] The examination is adequate to evaluate the referral indication. The LV wall thickness is mildly increased (concentric). The left ventricular wall motion is normal. The qualitative LV ejection fraction is 55-59% (normal). The left atrium is moderately enlarged (42-48 ml/m^2). The left ventricular diastolic function is moderately abnormal (grade II). Mild aortic valve stenosis is present. Mild aortic valve regurgitation is present. Mild mitral regurgitation is present. Mild tricuspid regurgitation is present. (1) CAD (coronary artery disease) Associated angina: without angina Coronary Disease-Associated Artery/Lesion type: [place] artery [place] vs. transplanted heart: [place] heart Qualified Code(s): I25.10 - Atherosclerotic heart disease of [place] coronary artery without angina pectoris (2) Aortic regurgitation Cardiac valve disease etiology: etiology unspecified Qualified Code(s): I35.1 - Nonrheumatic aortic (valve) insufficiency (3) Aortic stenosis Cardiac valve disease etiology: etiology unspecified Qualified Code(s): I35.0 - Nonrheumatic aortic (valve) stenosis (4) Hypertension Hypertension type: unspecified Qualified Code(s): I10 - Essential (primary) hypertension
[2021-01-02] MEDS ORDERED: ACETAMINOPHEN 325 MG TAB PO PRN (14:58)
[2021-01-02] MEDS ORDERED: WARFARIN SODIUM 5 MG PO SCH (14:58)
[2021-01-02] MEDS ORDERED: ONDANSETRON INJ 2 MG/ML 2 ML VIAL IV PRN (14:58)
[2021-01-02] MEDS ORDERED: LORazepam 1 MG TAB PO PRN (15:03)
[2021-01-02] MEDS: SODIUM CHLORIDE 0.9% 1000ML 1,000 ML IV SCH ×2 (15:26→23:23)
[2021-01-02] MEDS ORDERED: WARFARIN SOD 4 MG TAB PO SCH (16:00)
[2021-01-02] MEDS: SOTALOL HCL 80 MG TAB PO SCH (20:15)
[2021-01-02] MEDS ORDERED: ASPIRIN 81 MG ECTAB PO SCH (21:00)
[2021-01-03] MEDS: SODIUM CHLORIDE 0.9% 1000ML 1,000 ML IV SCH (05:32)
--- NOTE | 2021-01-03 06:01 | Electrocardiogram Report ---
Test Reason : Blood Pressure : / mmHG Vent. Rate : 128 BPM Atrial Rate : 129 BPM P-R Int : 000 ms QRS Dur : 094 ms QT Int : 334 ms P-R-T Axes : 000 020 125 degrees QTc Int : 487 ms Atrial fibrillation with rapid ventricular response Septal infarct (cited on or before 25-APR-2016) Abnormal ECG When compared with ECG of 27-MAR-2020 07:32, Atrial fibrillation has replaced Sinus rhythm Vent. rate has increased BY 73 BPM T wave inversion no longer evident in Anterior leads Inverted T waves have replaced nonspecific T wave abnormality in Lateral leads Confirmed by Charlie Gann ([id number]) on 01/03/2021 6:00:47 AM Referred By: Elisa Collazo Confirmed By:Charlie Gann
[2021-01-03] MEDS ORDERED: LEVOTHYROXINE SODIUM 88 MCG TABLET PO SCH (06:30)
[2021-01-03 07:13] LABS: INR 2.4 (0.9-1.1); Prothrombin Time 22.4 Seconds (9.0-12.0)
[2021-01-03 07:41] LABS: Albumin Level 3.2 gm/dl (3.4-5.0); Calcium 8.5 mg/dl (8.5-10.1); Creatinine Clr Calc Pharmacy 90.8 ml/min; Est GFR (African American) 106.8 ml/min; Est GFR (Non-African American) 92.2 ml/min; Potassium 3.5 mmol/L (3.5-5.1)
[2021-01-03 07:44] LABS: Albumin Globulin Ratio 0.9 (0.9-2); Bilirubin,Total 1.6 mg/dl (0.2-1); Globulin 3.5 gm/dl (2.5-4.0); Phosphorus 2.2 mg/dl (2.5-4.9); Total Protein 6.7 gm/dl (6.4-8.2)
[2021-01-03] MEDS: dilTIAZem HCL 125 MG in DEXTROSE 5% 100 ML IV SCH (08:20)
[2021-01-03] MEDS: SOTALOL HCL 80 MG TAB PO SCH (08:21)
[2021-01-03 08:28] LABS: Hematocrit (blood only) 42.6 % (37-47); Hemoglobin 14.7 g/dL (12.0-16.0); Mean Corpuscular Hemoglobin 30.5 pg (25-34); Mean Corpuscular Hgb Conc 34.5 g/dL (32-36); Mean Corpuscular Volume 88.4 fL (80-100); Mean Platelet Volume 10.5 fL (7.4-10.4); Platelet Count 190 K/uL (130-400); RDW Coefficient of Variation 13.7 % (11.5-14.5); RDW Standard Deviation 44.6 fL (36.4-46.3); Red Blood Count 4.82 M/uL (4.2-5.4); White Blood Count 5.44 K/uL (4.8-10.8)
[2021-01-03] MEDS ORDERED: amLODIPine BESYLATE 5 MG TAB PO SCH (09:00)
[2021-01-03] MEDS ORDERED: ISOSORBIDE MONO EXTENDED REL 30 MG TABCR PO SCH (09:00)
[2021-01-03] MEDS ORDERED: lisinopril 40 MG TAB PO SCH (09:00)
[2021-01-03] MEDS ORDERED: ROSUVASTATIN CALCIUM 5 MG TAB PO SCH (09:00)
[2021-01-03] MEDS ORDERED: POTASSIUM CHLORIDE CRTAB 20 MEQ TABCR PO STA (09:02)
[2021-01-03] MEDS ORDERED: fentaNYL citrate 100 MCG/2 ML VIAL ONE (09:56)
[2021-01-03] MEDS ORDERED: ATROPINE SULFATE 0.1 MG/ML 10ML SYR IV ONE (09:56)
[2021-01-03] MEDS ORDERED: MIDAZOLAM HCL 5 MG/ML 1 ML VIAL ONE (09:56)
--- NOTE | 2021-01-03 10:04 | Cardiology Progress Note ---
Date of Service January 03, 2021 Assessment & Plan (1) Atrial fibrillation with rapid ventricular response: Patient presented to the cardiology office on 01/02/2021 with complaints of palpitations starting around 4 AM. Patient was found to be in A. fib RVR around 130 bpm. Patient was symptomatic with complaints of shortness of breath. No chest pain. Recently treated with IV antibiotics and steroids which has been resulted in diarrhea. Serum creatinine stable, potassium low normal at 3.5. Sodium mildly low at 134. patient maintained on sotalol with a stable QTC. INR has been therapeutic. Metoprolol IV dropped blood pressure. Maintained on diltiazem drip at 5ml/hr, with a 10 mg bolus preceding it. Heart rates are much better controlled and patient is currently asymptomatic. Status post successful cardioversion to normal sinus rhythm. Cardizem drip DC'd. Potassium still low this a.m. despite receiving supplementation, additional 40 mEq given and will likely give another 40 mEq this afternoon. Will continue on current doses of sotalol and Coumadin as directed by the [facility] clinic Should she return to atrial fibrillation in the future consideration should be given to washout of sotalol and initiation of amiodarone, discussed with the patient and her Okay to discharge to home this evening should she remain in sinus and asymptomatic I called and spoke with her and updated him. (2) CAD (coronary artery disease): Mild nonobstructive disease per cath in 2011. Stable, no angina symptoms. (3) Hypertension: History of labile hypertension. Did have an episode of hypotension after giving metoprolol. Would hold off on restarting home blood pressure medications at this time. Patient is normally maintained on lisinopril 40 mg daily, Norvasc 2.5 mg daily, hydrochlorothiazide 25 mg daily, Imdur 30 mg daily. 1. Should patient start to become hypertensive would recommend restarting lisinopril first. (4) Aortic stenosis: (5) Aortic regurgitation: Borderline aortic stenosis without aortic regurgitation on repeat echo Persistent mild mitral regurgitation. Admission and Anticipated Discharge Date Admission Date: January 02, 2021 Subjective Patient seen and examined, chart reviewed. States that she had an uneventful night. Notices that her heart rate seem to have improved but still irregular. Denies chest pain, shortness of breath, lightheadedness or dizziness. Telemetry reviewed: Atrial fibrillation overnight Twelve-lead EKG: Atrial fibrillation with a QTC of 465 ms Review of Systems Review of Systems: All systems reviewed & are unremarkable except as noted in HPI & below Physical Exam Physical Exam: General: Awake, alert and oriented x 3. No acute distress. HEENT: Normocephalic, atraumatic. Pupils equal, round and reactive to light and accommodation. Extraocular muscles are intact. Anicteric sclera. Moist mucous membranes. Neck: No JVD. No bruit. Cardiovascular: irregularly irregular, unable to appreciate murmur, rub or gallop. Pulmonary: Clear to auscultation bilaterally. No rales, rhonchi, or wheezing. Abdomen: Bowel sounds x 4, soft. No rebound, guarding or tenderness. No organomegaly. Extremities: No clubbing, cyanosis or edema. +2 pedal pulses bilaterally. Skin: Warm and dry. Results & Data ([facility]) Vital Signs (Past 12 Hours) Vital Signs Temp Pulse Pulse Resp BP Pulse Ox 01/03/21 09:59 73 17 156/119 H 97 01/03/21 08:00 36.9 C 89 18 137/63 96 01/03/21 07:19 74 01/03/21 03:53 36.8 C 78 16 120/73 97 01/03/21 01:14 81 01/02/21 22:45 36.6 C 80 16 119/64 97 (1) CAD (coronary artery disease) Associated angina: without angina Coronary Disease-Associated Artery/Lesion type: [place] artery [place] vs. transplanted heart: [place] heart Qualified Code(s): I25.10 - Atherosclerotic heart disease of [place] coronary artery without angina pectoris (2) Aortic regurgitation Cardiac valve disease etiology: etiology unspecified Qualified Code(s): I35.1 - Nonrheumatic aortic (valve) insufficiency (3) Aortic stenosis Cardiac valve disease etiology: etiology unspecified Qualified Code(s): I35.0 - Nonrheumatic aortic (valve) stenosis (4) Hypertension Hypertension type: unspecified Qualified Code(s): I10 - Essential (primary) hypertension
--- NOTE | 2021-01-03 10:05 | Pre Anesthesia Assessment ---
Date of Service January 03, 2021 Pre Sedation Assessment Vital Signs Temp Pulse Pulse Resp BP BP Pulse Ox 01/03/21 09:59 73 17 156/119 H 97 01/03/21 08:00 36.9 C 89 18 137/63 96 01/03/21 07:19 74 01/03/21 03:53 36.8 C 78 16 120/73 97 01/03/21 01:14 81 01/02/21 22:45 36.6 C 80 16 119/64 97 01/02/21 19:25 36.5 C 86 18 138/83 97 01/02/21 16:00 36.8 C 98 H 18 149/79 H 98 01/02/21 14:59 36.4 C L 100 H 14 156/90 H 97 01/02/21 14:00 77 17 127/88 98 01/02/21 13:30 80 17 121/74 97 01/02/21 13:00 80 22 105/65 94 01/02/21 12:45 109 H 18 105/75 97 01/02/21 12:30 114 H 21 90/69 L 96 01/02/21 12:00 123 H 19 98/81 L 96 01/02/21 11:44 131 H 102/72 01/02/21 11:30 130 H 15 01/02/21 11:10 137 H 17 01/02/21 10:54 36.4 C L 130 H 20 138/63 98 Pre-Sedation Airway Assessment Smoking Status: Never smoker Short, Thick Neck: No Thyromental Distance: > or= 3.5 Finger Breadths Oral Cavity: + WNL Mallampati Class: III ASA: ASA3 NPO Status Date of Last Intake of Fluids: 01/03/21 Time of Last Intake of Fluids: 07:00 Date of Last Intake of Solid Food: 01/02/21 Notes The planned sedation has been discussed with the patient. Informed Consent was obtained. I have identified the patient, determined the appropriateness of sedation and have assessed the patient immediately prior to the procedure. All medicine(s) and interventions are by my order.
--- NOTE | 2021-01-03 10:24 | Post Anesthesia Assessment ---
Date of Service January 03, 2021 Post Sedation Assessment Vital Signs Temp Pulse Pulse Resp BP BP Pulse Ox 01/03/21 10:15 74 14 137/85 96 01/03/21 09:59 73 17 156/119 H 97 01/03/21 08:00 36.9 C 89 18 137/63 96 01/03/21 07:19 74 01/03/21 03:53 36.8 C 78 16 120/73 97 01/03/21 01:14 81 01/02/21 22:45 36.6 C 80 16 119/64 97 01/02/21 19:25 36.5 C 86 18 138/83 97 01/02/21 16:00 36.8 C 98 H 18 149/79 H 98 01/02/21 14:59 36.4 C L 100 H 14 156/90 H 97 01/02/21 14:00 77 17 127/88 98 01/02/21 13:30 80 17 121/74 97 01/02/21 13:00 80 22 105/65 94 01/02/21 12:45 109 H 18 105/75 97 01/02/21 12:30 114 H 21 90/69 L 96 01/02/21 12:00 123 H 19 98/81 L 96 01/02/21 11:44 131 H 102/72 01/02/21 11:30 130 H 15 01/02/21 11:10 137 H 17 01/02/21 10:54 36.4 C L 130 H 20 138/63 98 Discharge Sedation Level of Care: Fast Track Phase II Post Sedation Plan On clinical assessment, the patient appears to have tolerated the sedation without complications. Patient is recovering as anticipated. Patient will continue to be monitored by nursing and may be discharged when sedation discharge criteria are met per below protocol. Upon Completions of procedure up to 15 minutes continue every 5 minute vital signs and the P.A.R. score; then discharge to a Phase I or Fast Track to Phase II per the following guidelines: * Discharge Patient to appropriate Phase II area if PAR is 8 or greater or r eturn to pre- procedure baseline. The post - procedure orders will be as directed. * If PAR score is less than 8 or not return to pre-procedure baseline then patient will follow Phase I monitoring till PAR is reached for Phase II. The Phase I may be done in procedure room or may call to secure a Phase I area. * If naloxone or flumazenil are used for reversal, hold in Phase I for continued monitoring from when last reversal dose was given for a minimum of 60 minutes or longer pending the nurse and/or physician discretion of patient condition before discharge to Phase II. Please call the Sedation Physician to re-evaluate and complete post-note for discharge to Phase II area. Do NOT discharge from procedure sedation or Phase 1 until post- sedation evaluation note is complete by procedure /sedation MD Sedation Discharge Instructions to be given to the patient at discharge to home.
--- NOTE | 2021-01-03 10:26 | Cardioversion ---
Date of Service January 03, 2021 Electrical Cardioversion Rpt Electrical Cardioversion Report Informed consent obtained. Patient prepped. Adequate moderate sedation achieved with a total of Versed 1.5 mg and fentanyl 50 mcg 360 J of synchronized energy delivered with successful cardioversion to sinus rhythm. Patient tolerated well. To be recovered per protocol. Start time: 1013 Stop time: 1016 Plan: VIJAYA Farley Return to telemetry Anticipate discharge this afternoon
--- NOTE | 2021-01-03 14:21 | Discharge Summary ---
Date of Service January 03, 2021 Admission HPI Per Admitting Provider This is a 75 yo F with PMhx of paroxysmal A. 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 Pt presents to the ER today secondary to chest pain which she developed around 4 AM. She was seen by cardiology earlier today and upon arrival to the clinic was found to be tachycardic with EKG showing A. fib with RVR, heart rate in the 130s. Her complaints included flutter, palpitations, and shortness of breath with minimal exertion today. She has been taking sotalol as prescribed and is compliant with her other medications. INR is 2.2, as she is anticoagulated on Coumadin. On 12/17/20, INR was supratherapeutic 4.4, so had held a few doses. In the ER, diltiazem drip was started, and her heart rate has come down since. Heart rate is irregular, in the low 90s at bedside. is present with her and supports the history. She denies any chest pain, or shortness of breath at rest currently. Earlier today she ate breakfast, but nothing since then. Pt was hoping that she would not have to stay in the hospital, but is agreeable to staying overnight. Principal Diagnosis A. fib RVR, Status post cardioversion Discharge Exam Constitutional WD/WN, vitals as above Eyes PERRL, conjunctivae normal, anicteric sclerae ENMT external ear and nose normal, oropharynx normal Neck trachea midline, no thyromegaly Respiratory normal respiratory effort, lungs clear to auscultation Cardiovascular RRR, no murmur, no edema Gastrointestinal (Abdomen) Percussion/Palpation: abdomen soft; abdomen nontender Musculoskeletal no cyanosis or clubbing, extremities motor strength 5/5 Skin no rashes, warm and dry Neurologic PERRL, EOMI, accommodation nl, no face palsy, no dysarthria Psychiatric A+Ox3, euthymic affect Discharge Data Allergies Allergy/AdvReac Type Severity Reaction Status Date / Time No Known Allergies Allergy Verified 03/27/20 07:01 Consultations 01/02/21 12:41 ED Decision to Admit Stat 01/02/21 14:58 Consult Cardiology Routine Procedures Performed Operation Date: 01/03/21 10:30 Actual Procedures p Cardioversion - Yakov Toro DO Hospital Course (1) Atrial fibrillation with rapid ventricular response: sent from cardiology office with Aubree wild RVR at outpatient cardiology clinic with heart rate in the 140s and sent to the ER -Anticoagulated on Coumadin, INR therapeutic takes Coumadin 5 mg PO Sun/Tu/Thurs and 2.5 mg on all other days. Status post successful cardioversion today Patient tolerated procedure well, no discomfort, Per cardiology stable to be discharged home with prior medications -Continue sotalol 80 mg BID with holding parameters, Imdur 30 mg daily, baby aspirin daily, lisinopril 40 mg daily Hypokalemia: Replaced, patient is discharged home with 20 M EQ of p.o. potassium, repeat BMP in a week (2) Coronary artery disease: -No acute issue, patient will be discharged home with prior cardiac meds (3) Hypertension: Was hypotensive while on Cardizem drip which has been discontinued Patient is discharged home with her prior antihypertensive meds (4) Dyslipidemia: - Continue rosuvastatin 5 mg daily (5) Hypothyroid: - Continue levothyroxine 88 mcg daily, - TSH = 5.760, free T4 = 1.29 (6) Osteoporosis: - continue Fosamax 70 mg tablet on Sundays (7) GERD (gastroesophageal reflux disease): -Stable, not on PPI or H2 [place] DVT PPx: -Coumadin CODE: Full code Dispo: Discharged to home today Total Time Total Time Spent Total Time Spent (In Minutes): Approximately 35 minutes Total Time Includes: Examination of the Patient, Discharge Planning, Medication Reconciliation and Communication With Other Providers Discharge Plan Discharge Items Patient Disposition: Home - Self-Care Reason For Visit: AFIB WITH RVR Discharge Diagnosis: Aubree wild RVR, Status post cardioversion Activity: Resume your previous activity Non-emergency contact: Primary Care Provider Call non-emergency contact if: you have any medication questions Follow-up/Referrals: Leslie Barrow DO [Primary Care Provider] - 01/10/21 11:00 am Diet: Heart Healthy Addtl Attending Provider Instructions: Please take all medications as instructed on discharge list below. It is recommended that you follow-up with your primary care physician within 1-2 weeks of hospital discharge to ensure you are still doing well. Please call if you have any questions or problems. You can reach a [facility] hospitalist on duty at [facility] 24 hours a day by calling [phone] New medications: Potassium chloride 20 MEQ 1 tablet daily Lab work, basic metabolic panel in a week Pending Studies at Discharge: No Stand-Alone Forms: My [facility], Smoking Cessation Medications and DC Order Prescriptions: New potassium chloride 20 mEq tablet extended release 20 meq PO DAILY Qty: 30 RF: 0 Continued Multivitamin tablet 1 tab PO DAILY Qty: 0 RF: 0 ASPIRIN (ASPIRIN CHEWABLE) 81 MG CHEWABLE TAB 81 mg PO HS Qty: 0 RF: 0 CALCIUM CARBONATE (ANTACID) (TUMS) 500 MG CHW 500 mg PO PRN Qty: 0 RF: 0 LISINOPRIL (ZESTRIL) 40 MG tablet 40 mg PO QAM Qty: 0 RF: 0 NITROGLYCERIN (NITROSTAT) 0.4 MG SUB 0.4 mg UT PRN Qty: 0 RF: 0 LORAZEPAM (ATIVAN) 1 MG tablet 1 mg PO BID PRN (Reason: anxiety) Qty: 0 RF: 0 Acetaminophen (Tylenol) 500 MG tablet 2 tab PO Q6 PRN (Reason: PRN) 2 Days Qty: 20 RF: 3 HYDROCHLOROTHIAZIDE 12.5 MG tablet 1 tab PO DAILY 30 Days Qty: 0 RF: 5 WARFARIN SODIUM (COUMADIN) 5 MG tablet 1 tab PO DAILY all other days 90 Days Qty: 0 RF: 1 isosorbide mononitrate 30 mg Tablet Extended Release 24 Hr 30 mg PO DAILY RF: 0 amlodipine 2.5 mg Tablet 2.5 mg DAILY RF: 0 triamcinolone acetonide 0.1 % Cream 1 applic TOPICAL BID RF: 0 levothyroxine 88 mcg Tablet 88 mcg PO DAILY RF: 0 rosuvastatin 5 mg Tablet 5 mg PO Q OTHER DAY RF: 0 diclofenac sodium 1 % Gel 2 g TOPICAL QID RF: 0 Sotalol HCl 80 MG tablet 120 mg PO BID RF: 0 Discharge Orders: Discharge Order (Routine); Ordered 01/03/21 Ordered By: Karyn Lombardo Admission Data Admit Date/Time: 01/02/21 12:55 Attending Provider: Karyn Lombardo Admit Provider: Melvin Alvarez Primary Care Provider: Leslie Barrow Other Providers: Melvin Alvarez ; Yakov Toro Other Interventions: Discharge Summary Assessment (RN) Last Done: 01/03/21 14:22
--- NOTE | 2021-01-04 06:23 | Electrocardiogram Report ---
Test Reason : Blood Pressure : / mmHG Vent. Rate : 079 BPM Atrial Rate : 250 BPM P-R Int : 000 ms QRS Dur : 098 ms QT Int : 406 ms P-R-T Axes : 000 053 217 degrees QTc Int : 465 ms Atrial fibrillation Septal infarct (cited on or before 25-APR-2016) Inferior infarct , age undetermined Abnormal ECG When compared with ECG of 02-JAN-2021 11:05, Vent. rate has decreased BY 49 BPM Inferior infarct is now Present Questionable change in initial forces of Septal leads ST no longer depressed in Inferior leads Confirmed by Charlie Gann ([id number]) on 01/04/2021 6:23:03 AM Referred By: Elisa Collazo Confirmed By:Charlie Gann
--- NOTE | 2021-01-08 17:19 | Electrocardiogram Report ---
Test Reason : Blood Pressure : / mmHG Vent. Rate : 051 BPM Atrial Rate : 051 BPM P-R Int : 178 ms QRS Dur : 090 ms QT Int : 488 ms P-R-T Axes : 073 -26 060 degrees QTc Int : 449 ms Sinus bradycardia with sinus arrhythmia Left ventricular hypertrophy with repolarization abnormality Abnormal ECG When compared with ECG of 03-JAN-2021 05:29, Sinus rhythm has replaced Atrial fibrillation Vent. rate has decreased BY 28 BPM Criteria for Inferior infarct are no longer Present Nonspecific T wave abnormality, improved in Inferior leads Confirmed by Chu Alcala ([id number]) on 01/08/2021 5:19:07 PM Referred By: Elisa Collazo Confirmed By:Mynor Alcala
== END 2021-01-03 15:46 | disposition home or self-care (01) | DRG 309 ==
LOC: ED 10:50 → SUATTDRO 12:55 → 2S 12:55
DX: E87.6 Hypokalemia; E03.9 Hypothyroidism, unspecified; E78.5 Hyperlipidemia, unspecified; K21.9 Gastro-esophageal reflux disease without esophagitis; T36.95XA Adverse effect of unspecified systemic antibiotic, initial encounter; I48.0 Paroxysmal atrial fibrillation; I25.10 Atherosclerotic heart disease of native coronary artery without angina pectoris; I35.2 Nonrheumatic aortic (valve) stenosis with insufficiency; T38.0X5A Adverse effect of glucocorticoids and synthetic analogues, initial encounter; Z79.01 Long term (current) use of anticoagulants; Z79.890 Hormone replacement therapy; Z79.899 Other long term (current) drug therapy; Z79.83 Long term (current) use of bisphosphonates; I10 Essential (primary) hypertension; K52.1 Toxic gastroenteritis and colitis; M81.0 Age-related osteoporosis without current pathological fracture; Z79.82 Long term (current) use of aspirin